=== PATIENT | female | born 1995 | race American Indian/Alaskan Native ===

== ENCOUNTER 2018-09-16 23:53 | Emergency (ER) | payer SELFPAY ==
--- NOTE | 2018-09-17 01:02 | C.PDOC ---
History Of Present Illness 23 year old female presents to the ED c/o right lower dental pain for the past 3 days. Patient reports her pain has been intermittent. Patient denies fever, chills, headache, neck pain, facial swelling, rash. No recent dental work up Time Seen by Provider: 09/17/18 00:24 Chief Complaint (Nursing): Dental Pain History Per: Patient History/Exam Limitations: no limitations Onset/Duration Of Symptoms: Days (3), Intermittent Episodes Current Symptoms Are (Timing): Still Present Quality: Positive for: "Pain" Recent travel outside of the [place]: No Additional History Per: Patient Past Medical History Reviewed: Historical Data, Nursing Documentation, Vital Signs Vital Signs: Last Vital Signs Temp 98.8 F 09/17/18 00:06 Pulse 72 09/17/18 00:06 Resp 20 09/17/18 00:06 BP 132/84 09/17/18 00:06 Pulse Ox 100 09/17/18 00:06 Primary Care Provider: Non [facility] Provider, - Medical History PMH: No Chronic Diseases Surgical History: No Surg Hx Family History: States: Unknown Family Hx - Social History Hx Alcohol Use: No Hx Substance Use: No - Immunization History Hx Tetanus Toxoid Vaccination: No Hx Influenza Vaccination: No Hx Pneumococcal Vaccination: No Review Of Systems Constitutional: Negative for: Fever, Chills ENT: Positive for: Mouth Pain. Negative for: Mouth Swelling, Throat Pain, Throat Swelling Gastrointestinal: Negative for: Nausea, Vomiting Musculoskeletal: Negative for: Neck Pain Skin: Negative for: Rash Neurological: Negative for: Headache Physical Exam - Physical Exam Appears: Non-toxic, No Acute Distress Skin: Normal Color, Warm, Dry Head: Atraumatic, Normacephalic, No Swelling Eye(s): bilateral: Normal Inspection Ear(s): Bilateral: Normal Oral Mucosa: Moist Tongue: No Laceration Lips: No Laceration Teeth: Other (tooth impacted right lower molar) Gingiva: Erythema (right lower moalr), Tender (right lower molar area) Throat: Normal, No Erythema, No Exudate Neck: Normal ROM, No Midline Cervical Tenderness, Supple Neurological/Psych: Oriented x3, Normal Speech, Normal Cognition Gait: Steady ED Course And Treatment O2 Sat by Pulse Oximetry: 100 (ON RA) Pulse Ox Interpretation: Normal Progress Note: Plan: - Motrin 800 mg PO. - Penicillin 500 mg PO. Patient was given first dose of antibiotics in the ED. Yesseniaetn advised to follow up with Dentist. Disposition Counseled Patient/Family Regarding: Diagnosis, Need For Followup, Rx Given - Disposition Disposition: HOME/ ROUTINE Disposition Time: 00:58 Condition: STABLE Additional Instructions: Please follow up with PMD Take medications as directed Follow up with PMD Return to ER if worse Prescriptions: Ibuprofen [Motrin Tab] 800 mg PO QID #20 tab Penicillin VK [Penicillin VK Tab] 2 tab PO BID #28 tab Instructions: Impacted Tooth (DC) Forms: [employer] (K[place]akh) - Clinical Impression Clinical Impression: Impacted molar, Dental infection - PA / ASSEMBLER / Resident Statement MD/DO has reviewed & agrees with the documentation as recorded. - Scribe Statement The provider has reviewed the documentation as recorded by the Scribe Piotr Rodríguez All medical record entries made by the Kristaibdavid were at my direction and personally dictated by me. I have reviewed the chart and agree that the record accurately reflects my personal performance of the history, physical exam, medical decision making, and the department course for this patient. I have also personally directed, reviewed, and agree with the discharge instructions and disposition.
[2018-09-17 01:24] VITALS: BP 115/76; PULSE 80; RESP 18; TEMP 98.6
[2018-09-17 02:30] VITALS: O2SAT 100
== END 2018-09-17 01:23 | disposition home or self-care (01) ==
LOC: C.ER 23:53
DX: K01.1 Impacted teeth (principal); K04.7 Periapical abscess without sinus